=== PATIENT | female | born 1980 | race Caucasian/White ===

== ENCOUNTER → 2017-05-20 | Outpatient (CLI) | payer OTHER ==
--- NOTE | 2017-05-20 13:17 | MM ---
Reason for exam: screening (asymptomatic). Baseline mammogram. History: Family history of breast cancer in aunt at age 40. Retro-pectoral saline implants in both breasts, 2007. Taking progesterone beginning at age 35. Physical Findings: Nurse did not find any significant physical abnormalities on exam. MG 3D Screen Mammo Imp/Cad Bilateral CC, MLO, and ID view(s) were taken. There are scattered fibroglandular densities. Focal asymmetry subareolar upper outer quadrant left breast incompletely disperses especially on the CC view. Ultrasound recommended. These results were verbally communicated with the patient and result sheet given to the patient on 05/20/17. ASSESSMENT: Incomplete: need additional imaging evaluation, BI-RAD 0 RECOMMENDATION: Ultrasound of the left breast. (upper outer quadrant periareolar)
--- NOTE | 2017-05-20 13:20 | USB ---
Reason for exam: additional evaluation requested from abnormal screening. History: Family history of breast cancer in aunt at age 40. Retro-pectoral saline implants in both breasts, 2007. Taking progesterone beginning at age 35. US Breast Workup Limited LT Left breast ultrasound demonstrates no cystic or solid lesion seen. The patient is scheduled for implant revision in 2 months. A 6 month follow up of both sides can be performed as a new baseline after surgery. These results were verbally communicated with the patient and result sheet given to the patient on 05/20/17. ASSESSMENT: Probably benign, BI-RAD 3 RECOMMENDATION: Follow-up diagnostic mammogram of both breasts in 6 months. Manage on a clinical basis with regard to left breast pain.
== END | disposition home or self-care (01) ==
LOC: RADMAMWWP 11:06
PROVIDERS: ATTEND Obstetrics & Gynecology
DX: Z12.31 Encounter for screening mammogram for malignant neoplasm of breast (principal); R92.8 Other abnormal and inconclusive findings on diagnostic imaging of breast; Z98.82 Breast implant status; Z80.3 Family history of malignant neoplasm of breast
CPT/HCPCS: 77063; 76642; G0202